=== PATIENT | male | born 1960 | race Caucasian/White ===

== ENCOUNTER 2021-03-09 11:37 | Emergency (ER) | payer MEDICAID ==
[~2021-03-09] VITALS: Ht 170.2 cm; Wt 98.0 kg
[2021-03-09] MEDS ORDERED: FAMOTIDINE 20MG/2ML VIAL IV STA (11:57)
[2021-03-09] MEDS ORDERED: SODIUM CHLORIDE 0.9% 1,000 ML IV ONE (12:00)
[2021-03-09 12:30] LABS: BASOPHILS % 0.9 % (0.0-2.0); EOSINOPHILS % 0.7 % (0.0-5.0); HEMATOCRIT. 42.6 % (42.0-52.0); HEMOGLOBIN. 15.2 g/dL (14.0-18.0); LYMPHOCYTES % 22.3 % (20.0-50.0); MEAN CORPUSCULAR HEMOGLOBIN 30.5 pg (28.0-32.0); MEAN CORPUSCULAR VOLUME 85.2 fL (80.0-94.0); MEAN PLATELET VOLUME 9.4 fl (7.4-10.4); MONOCYTES % 6.8 % (2.0-8.0); NEUTROPHILS % 69.3 % (40.0-76.0); PLATELET 233 x1000/uL (130-400); RED BLOOD CELL COUNT 4.99 mill/uL (4.7-6.1); RED CELL DISTRIBUTION WIDTH 13.3 % (11.6-14.6)
[2021-03-09 12:35] LABS: CHLORIDE 105 mEq/L (98-107)
[2021-03-09 14:17] VITALS: BP 151/90
== END 2021-03-09 14:16 | disposition home or self-care (01) ==
LOC: ER 11:37
DX: R73.9 Hyperglycemia, unspecified (principal); R10.13 Epigastric pain; E86.0 Dehydration
CPT/HCPCS: 36415; 76700; 80053; 83690; 84484; 85025; 93005; 96361; 96374; 99285; J3490; J7030; Z7610